=== PATIENT | female | born 1950 | race Two or more races ===

== ENCOUNTER 2022-12-16 08:41 | Outpatient (CLI) | payer OTHER | END 2022-12-16 08:51 | disposition home or self-care (01) | LOC: TOM 08:41 | PROVIDERS: ATTEND Internal Medicine Gastroenterology | DX: R19.5 Other fecal abnormalities (principal); K57.90 Diverticulosis of intestine, part unspecified, without perforation or abscess without bleeding; K64.8 Other hemorrhoids; Z12.11 Encounter for screening for malignant neoplasm of colon ==